=== PATIENT | female | born 1975 | race Asian ===

== ENCOUNTER 2017-11-11 16:19 | Emergency (ER) | payer BC, OTHER ==
[~2017-11-11] VITALS: Ht 160 cm; Wt 134.0 kg
[2017-11-11] MEDS ORDERED: MEDROL4 MG PO (17:45)
== END 2017-11-11 18:22 | disposition home or self-care (01) ==
LOC: ED 16:19
DX: M72.2 Plantar fascial fibromatosis (principal)
CPT/HCPCS: 96372; 99283; J1885; J7512

== ENCOUNTER 2019-03-15 07:43 | Emergency (ER) | payer OTHER ==
[~2019-03-15] VITALS: Ht 160 cm; Wt 56.7 kg
[~2019-03-15 07:43] MED LIST: MEDROL4 MG PO
[2019-03-15] MEDS ORDERED: ULTRAM50 MG PO (09:47)
== END 2019-03-15 10:13 | disposition home or self-care (01) ==
LOC: ED 07:43
DX: R10.9 Unspecified abdominal pain (principal); Z90.49 Acquired absence of other specified parts of digestive tract
CPT/HCPCS: 80053; 81001; 83690; 84703; 85025; 96361; 96374; 96375; 99284-25; J1885; J2550; J7030

== ENCOUNTER 2019-10-06 05:43 | Emergency (ER) | payer OTHER ==
[~2019-10-06] VITALS: Ht 233.7 cm; Wt 57.8 kg
--- OUTSIDE RECORDS SUMMARY | ~2019-10-06 | XMS | Clinical Summary ---
Demographics + + + | Address | [address] | | | [address] | | | [place] [address] | + + + | Home Phone | | + + + | Preferred Language | Unknown | + + + | Marital Status | | + + + | Congregational Affiliation | Unknown | + + + | Race | Unknown | + + + | Ethnic Group | Unknown | + + + Author + + + | Author | [facility] (Historical as of | | | 05-17-19) | + + + | Organization | [facility] (Historical as of | | | 05-17-19) | + + + | Address | Unknown | + + + | Phone | Unavailable | + + + Support + + + + + | Name | Relationship | Address | Phone | + + + + + | Wong Iverson | ECON | [address] | | | | | [address] | | + + + + + Care Team Providers + +------+ + | Care Trench Shovel Operator Name | Role | Phone | + +------+ + | Dr. Clement | PP | Unavailable | + +------+ + Allergies Not on File Current Medications Not on file Active Problems Not on file Social History + +-------+ +--------+------+ | Tobacco Use | Types | Packs/Day | Years | Date | | | | | Used | | + +-------+ +--------+------+ | Never Assessed | | | | | + +-------+ +--------+------+ + + + | Sex Assigned at | Date Recorded | | | | + + + | Not on file | | + + + Plan of Treatment Not on file Results Not on filefrom Last 3 Months"
--- OUTSIDE RECORDS SUMMARY | ~2019-10-06 | XMS | Clinical Summary ---
Demographics + + + | Address | [address] | | | [address] | | | [place] [address] | + + + | Home Phone | | + + + | Preferred Language | Unknown | + + + | Marital Status | | + + + | Faith Affiliation | Unknown | + + + | Race | Unknown | + + + | Ethnic Group | Unknown | + + + Author + + + | Author | [facility] (Historical as of | | | 05-17-19) | + + + | Organization | [facility] (Historical as of | | | 05-17-19) | + + + | Address | Unknown | + + + | Phone | Unavailable | + + + Support + + + + + | Name | Relationship | Address | Phone | + + + + + | Wong Iverson | ECON | [address] | | | | | [address] | | + + + + + Care Team Providers + +------+ + | Care Family Helper Name | Role | Phone | + [...]
--- OUTSIDE RECORDS SUMMARY | ~2019-10-06 | XMS | Clinical Summary ---
Demographics + + + | Address | [address] | | | [address] | | | [place] [address] | + + + | Home Phone | | + + + | Preferred Language | Unknown | + + + | Marital Status | | + + + | Church Affiliation | Unknown | + + + | Race | Unknown | + + + | Ethnic Group | Unknown | + + + Author + + + | Author | [facility] | | | and [facility] | + + + | Organization | [facility] | | | and [facility] | + + + | Address | Unknown | + + + | Phone | Unavailable | + + + Support + + +---------+ + | Name | Relationship | Address | Phone | + + +---------+ + | Wong Iverson | ECON | Unknown | | + + +---------+ + Care Team Providers + +------+ + | Care Search Optimization Analyst Name | Role | Phone | + +------+ + PCP | Unavailable | + +------+ + Allergies Not on File Medications Not on file Active Problems Not [...] on file | | + + + + + + + | Job Start Date | Occupation | Industry | + + + + | Not on file | Not on file | Not on file | + + + + + + + + | Travel History | Travel Start | Travel End | + + + + + + | No recent travel history available. | + + Last Filed Vital Signs Not on file Plan of Treatment + + + + + | Health Maintenance | Due Date | Last Done | Comments | + + + + + | Vaccine: | | | | | Dtap/Tdap/Td (1 - | 6 | | | | Tdap) | | | | + + + + + | Cervical Cancer | | | | | Screening (Pap) | 5 | | | + + + + + | Vaccine: Influenza | | | | | (#1) | 9 | | | + + + + + Results Not on filefrom Last 3 Months"
--- OUTSIDE RECORDS SUMMARY | ~2019-10-06 | XMS | Encounter Summary ---
Demographics + + + | Address | [address] | | | [address] | | | [place] [address] | + + + | Home Phone | | + + + | Preferred Language | Unknown | + + + | Marital Status | | + + + | Confucianist Affiliation | Unknown | + + + | Race | Unknown | + + + | Ethnic Group | Unknown | + + + Author + + + | Author | [facility] | | | and [place] | + + + | Organization | [facility] | | | and [...] Team Providers + +------+ + | Care Leather Stretcher Name | Role | Phone | + +------+ + PCP | Unavailable | + +------+ + Encounter Details +--------+ + + + + | Date | Type | Department | Care Team | Description | +--------+ + + + + | 05/14/ | Emergency | [facility] | Buddy Toscano | Other [facility] | | [facility] | [facility] | [address] | Fatigue | | | | EMERGENCY CENTER | [address] [place], [place] | | | | | [address] [facility] | [address] | | | | | [place], [place] | [phone] | | | | | [address] | | | | | | [phone] | | | +--------+ + + + + Social History + +-------+ +--------+------+ | Tobacco [...] recent travel history available. | + + documented as of this encounter Plan of Treatment Not on filedocumented as of this encounter Visit Diagnoses + + | Diagnosis | + + | Other malaise and fatigue | + + documented in this encounter"
--- OUTSIDE RECORDS SUMMARY | ~2019-10-06 | XMS | Clinical Summary ---
Demographics + + + | Address | [address] | | | [address] | | | [place] [address] | + + + | Home Phone | | + + + | Preferred Language | Unknown | + + + | Marital Status | | + + + | Nondenominational Affiliation | Unknown | + + + | Race | Unknown | + + + | Ethnic Group | Unknown | + + + Author + + + | Author | [facility] | | | and [place] | + + + | Organization | [facility] | | | and [facility] | [...] Team Providers + +------+ + | Care Asset Card Clerk Name | Role | Phone | + [...]
--- OUTSIDE RECORDS SUMMARY | ~2019-10-06 | XMS | Encounter Summary ---
Demographics + + + | Address | [address] | | | [address] | | | [place] [address] | + + + | Home Phone | | + + + | Preferred Language | Unknown | + + + | Marital Status | | + + + | Confucianist Affiliation | Unknown | + + + | Race | Unknown | + + + | Ethnic Group | Unknown | + + + Author + + + | Author | [facility] | | | and [place] | + + + | Organization | [facility] | | | and [facility]reetana [...] Team Providers + +------+ + | Care Child Care Education Coordinator Name | Role | Phone | + +------+ + PCP | Unavailable | + +------+ + Encounter Details +--------+ + + + + | Date | Type | Department | Care Team | Description | +--------+ + + + + | 05/14/ | Emergency | [facility] | Buddy Toscano | Other [facility] | | [facility] | | MEDICAL [facility]ENTER | [address] | Fatigue | | | | EMERGENCY CENTER | [address] [place], [place] | | | | | [address] [facility] | [address] | | | | | [place], [place] | [phone] | | | | | [address] | | | | | | [phone] | | | +--------+ + + + [...]
[~2019-10-06 05:43] MED LIST changes: +ULTRAM50 MG PO
--- NOTE | 2019-10-06 13:18 | EKG ---
[facility] [address] [facility] [place], [place] [address] Signed Normal sinus rhythm Nonspecific ST and T wave abnormality Abnormal ECG No previous ECGs available Confirmed by CATRACHITO WATKINS DO ([id number]) on 10/06/2019 1:18:00 PM Electronically Signed By: CATRACHITO WATKINS DO 10/06/19 1318 PATIENT NAME: PILAR RIVAS Electrocardiogram DATE OF : 73 PHYSICIAN: CATRACHITO WATKINS DO REPORT #: [id number] REPORT IS CONFIDENTIAL AND NOT TO BE RELEASED WITHOUT AUTHORIZATION
== END 2019-10-06 07:05 | disposition home or self-care (01) ==
LOC: ED 05:43
DX: M75.92 Shoulder lesion, unspecified, left shoulder (principal); Z79.891 Long term (current) use of opiate analgesic
CPT/HCPCS: 71046; 80053; 84484; 85025; 93005; 93010; 99284-25

== ENCOUNTER 2020-09-06 23:27 | Emergency (ER) | payer OTHER ==
[~2020-09-06] VITALS: Ht 157.5 cm; Wt 61.4 kg
--- OUTSIDE RECORDS SUMMARY | 2020-09-06 23:30 | XMS ---
PreManage Notification: PILAR RIVAS Security [employer] Events No recent Security Events currently on file CRITERIA MET - [facility] - 2 Visits in 30 Days CARE PROVIDERS There are no care providers on record at this time. Kayleen has no Care Guidelines for this patient. Mike VISIT COUNT (12 MO.) [address] TOTAL 3 NOTE: Visits indicate total known visits. ED/[facility] VISIT TRACKING (12 MO.) [facility] COMPLAINT: - HEAD PAIN,NECK PAIN 09/06/2020 21:06 [facility] [place] TYPE: Emergency COMPLAINT: - COVID SCREENING DIAGNOSES: - COVID SCREENING 10/06/2019 05:44 [facility] [place] TYPE: Emergency COMPLAINT: - LEFT ARM PAIN DIAGNOSES: - nursing home (current) use of opiate analgesic - Shoulder lesion, unspecified, left shoulder - Pain in left shoulder INPATIENT VISIT TRACKING (12 MO.) No inpatient visits to display in this time frame [email or web address]
--- NOTE | 2020-09-07 16:52 | EKG ---
[facility] [address] [facility] [place] [address] Signed Normal sinus rhythm Prolonged QT Abnormal ECG When compared with ECG of 06-OCT-2019 05:55, No significant change was found Confirmed by MARY MORRELL MD ([id number]) on 09/07/2020 4:52:08 PM Electronically Signed By: MARY MORRELL MD 09/07/201651 PATIENT NAME: PILAR RIVAS Electrocardiogram DATE OF : 73 PHYSICIAN: MARY MORRELL MD REPORT #: [id number] REPORT IS CONFIDENTIAL AND NOT TO BE RELEASED WITHOUT AUTHORIZATION
== END 2020-09-07 01:58 | disposition home or self-care (01) ==
LOC: ED 23:27
DX: R51.9 Headache, unspecified (principal); Z20.828 Contact with and (suspected) exposure to other viral communicable diseases
CPT/HCPCS: 80053; 84484; 85025; 93005; 93010; 99284-25; C9803; J7030; U0003